=== PATIENT | female | born 1970 | race Native Hawaiian/Other Pacific Islander ===

== ENCOUNTER 2020-08-08 06:12 | Day surgery (SDC) | payer OTHER ==
--- NOTE | 2020-08-07 21:00 | History and Physical Report ---
History of Present Illness Date of examination: 08/06/20 Chief complaint: Vulvar pain, Bump History of present illness: Pt is a 49 year old female presents for surgical management of left vulvar mass. An attempt was made at in office biopsy, but in the interest of patient safety, the decision was made to perform the procedure in the operating room given her history of anticoagulation with warfarin 5 mg daily for atrial fibrillation and Acuña prosthetic valve replacement mitral stenosis. Past History Past Medical History: arrhythmia (atrial fibrillation ), other (Acuña prostethic mitral valve ) Past Surgical History: section, other (cardiac surgery ) [employer] History: herpes Family/Genetic History: diabetes, cancer Social history: no significant social history, - Obstetrical History : 2 Para: 2 Hx # Term Pregnancies: 2 Number of Pregnancies: 0 Spontaneous Abortions: 0 Induced : 0 Number of Living Children: 2 Medications and Allergies Allergies Allergy/AdvReac Type Severity Reaction Status Date / Time No Known Allergies Allergy Unverified 08/06/20 14:43 Active Meds: Active Medications Acetaminophen (Acetaminophen 500 Mg Tab) 1,000 mg PO PREOP RACHEL Stop: 08/08/20 21:00 Lactated Ringer's (Lactated Ringers) 1,000 mls @ 100 mls/hr IV DIRECT RACHEL Stop: 08/08/20 23:59 Midazolam HCl (Midazolam 2 Mg/2 Ml Inj) 2 mg IV PREOP NR Stop: 08/08/20 21:00 Review of Systems All systems: negative - Physical Exam Breasts: Positive: deferred Abdomen: Positive: soft Genitourinary (Female): Positive: other (left vulvar mass 3-4 cm, fluctuant; tender) Results All other labs normal. Assessment and Plan A: Left vulvar mass Acuña Prosthetic Valve secondary to Mitral Stenosis Atrial Fibrillation Anticoagulation with Warfarin 5 mg, held for three days preoperative per Cardiology recommendations P: Draw CBC, Type and Screen, Coags Proceed with exam under anesthesia, excision of left vluvar mass and other indicated procedures
[~2020-08-08 06:12] MED LIST: ACETAMINOPHEN 500 MG TAB PO SCH; LACTATED RINGERS 1,000 ML IV SCH; MIDAZOLAM 2 MG/2 ML INJ IV NR; ceFAZolin/Water 2 GM/20 ML 2 GM/20 ML SYRINGE IV NR
[2020-08-08] MEDS ORDERED: fentaNYL 100 MCG/2 ML INJ ONE (07:08)
[2020-08-08] MEDS ORDERED: LIDOCAINE MPF (2%) 20 MG/1 ML VIAL 5 ML ONE (07:08)
[2020-08-08] MEDS ORDERED: dexAMETHasone 20 MG/5 ML VIAL ONE (07:08)
[2020-08-08] MEDS ORDERED: ONDANSETRON 4 MG/2 ML INJ ONE (07:08)
[2020-08-08] MEDS ORDERED: propofoL 200 MG/20 ML VIAL IV ONE (07:09)
--- NOTE | 2020-08-08 07:32 | Anesthesia Day of Surgery ---
Anesthesia Day of Surgery - Day of Surgery Patient Examined: Yes Patient H&P Reviewed: Yes Patient is NPO: Yes
--- NOTE | 2020-08-08 07:32 | Anesthesia Consultation ---
Anesthesia Consult and Med Hx Date of service: 08/08/20 - Airway Anesthetic Teeth Evaluation: Good ROM Head & Neck: Adequate Mental/Hyoid Distance: Adequate Mallampati Class: Class III Intubation Access Assessment: Possibly Difficult - Pulmonary Exam CTA: Yes - Cardiac Exam Cardiac Exam: RRR - Pre-Operative Health Status ASA Pre-Surgery Classification: ASA3 Proposed Anesthetic Plan: General - Pulmonary Hx Smoking: No Hx Respiratory Symptoms: No - Cardiovascular System Hx Hypertension: No Hx Heart Attack/AMI: No Hx Percutaneous Transluminal Coronary Angioplasty (PTCA): No Hx Cardia Arrhythmia: Yes (hx a-fib; off coumadin x3 days per cardiology recs) Hx Pacemaker: No Hx Internal Defibrillator: No Hx Valvular Heart Disease: Yes (hx MS s/p MV replacement 2.5yrs ago) - Central Nervous System CVA: No - Endocrine Hx Renal Disease: No Hx Liver Disease: No Hx Insulin Dependent Diabetes: No Hx Non-Insulin Dependent Diabetes: No Hx Thyroid Disease: No - Other Systems Hx Obesity: No - Additional Comments Anesthesia Medical History Comments: No hx anesthetic complications.
[2020-08-08 07:37] LABS: Hematocrit 41.3 % (30.3-42.9); Hemoglobin 13.9 gm/dl (10.1-14.3); Mean Corpuscular HGB Conc 34 % (30-34); Mean Corpuscular Volume 90 fl (79-97); Platelet Count 223 K/mm3 (140-440); Red Blood Count 4.59 M/mm3 (3.65-5.03); Red Cell Distribution Width 13.8 % (13.2-15.2)
[2020-08-08] MEDS ORDERED: ROCURONIUM 50 MG/5 ML INJ IV ONE ×2 (07:43→07:44)
[2020-08-08 07:48] LABS: INR 1.3 (0.87-1.13)
[2020-08-08 07:49] LABS: Partial Thromboplastin Time 30.3 Sec. (24.2-36.6)
[2020-08-08] MEDS ORDERED: HYDROmorphone 1 MG/1 ML INJ IV PRN (08:00)
[2020-08-08] MEDS ORDERED: ONDANSETRON 4 MG/2 ML INJ IV PRN (08:00)
[2020-08-08] MEDS ORDERED: HYDROmorphone 1 MG/1 ML INJ ONE (08:11)
[2020-08-08] MEDS ORDERED: LIDOCAINE 2%/EPINEPHRINE 1:100,000 VIAL (20 ML) INFILTRATI ONE (08:12)
[2020-08-08] MEDS ORDERED: LIDOCAINE 1.5% /EPINEPHRINE 1:200,000 AMP (5 ML) INFILTRATI ONE ×2 (08:12→08:24)
[2020-08-08] MEDS ORDERED: LIDOCAINE 0.5%/EPINEPHRINE 1:200,000 VIAL (50 ML) MDV INFILTRATI ONE (08:30)
--- NOTE | 2020-08-08 08:45 | Operative Report ---
Operative Report Operative Report: Date of Procedure: August 08, 2020 Preoperative Diagnosis: Left Vulvar Mass, Vulvar Pain Postoperative Diagnosis: Same Procedure: Exam under anesthesia, Incision, Irrigation and Biopsy of Left Vulvar Mass Surgeon: Michelle Quiñonez MD Rip/Mould Operator: Milvia Duenas MD Anesthesia: GETA Findings: 1) One centimeter area of yellow tissue surrounded by erythema and 3-4 cm depth of indurated tissue in the left labum majorum EBL: 25 mL Urine output: 75 mL, clear prior to the procedure Drains: None Specimen: Biopsy of yellow tissue at center of left vulvar mass to pathology Disposition: Stable to PACU Indication for Procedure: Pt is a 49 year old female presents for surgical management of left vulvar mass. An attempt was made at in office biopsy, but in the interest of patient safety, the decision was made to perform the procedure in the operating room given her history of anticoagulation with warfarin 5 mg daily for atrial fibrillation and Acuña prosthetic valve replacement mitral stenosis. Operation in Detail: After the risks, benefits, alternatives and complications of the procedures were explained to the patient, she gave informed consent for the procedure. She was taken to the operating room with her IV noted to be running well and placed in the dorsal supine position. SCDs were noted to be in place and functioning. General endotracheal anesthesia was induced without difficulty. She was then placed in the dorsal lithotomy position and prepped and draped in a sterile fashion. A time out was performed. A rubber catheter was used to drain the bladder of clear urine. At this time, a yellow area 1-2 cm in width was noted in the left labum majorum at the 4 o'clock position. The area was infiltrated with 1% lidocaine with epinephrine to aid in hemostasis. A portion of the yellow tissue was excised and sent to pathology for analysis. Then a deeper incision was made in the tissue with findings of only indurated tissue and no egress of fluid or pus. The remaining cavity was irrigated with normal saline, then cauterized to obtain hemostasis. The cavity was then packed with iodoform gauze. The gauze was held in place with a loose figure of eight of 3-0 silk suture. At this time, hemostasis was noted and the procedure was ended. The patient was placed into the dorsal supine position and extubated without difficulty. She was taken to the PACU in stable condition. She will receive a 14 day course of oral antibiotics postoperatively.
--- NOTE | 2020-08-08 08:49 | Short Stay Summary ---
Short Stay Documentation Date of service: 08/08/20 - History H&P: dictated Social history: no significant social history, - Allergies and Medications Current Medications: Allergies No Known Allergies Allergy (Unverified 08/06/20 14:43) Home Medications Medication Instructions Recorded Confirmed Last Taken Type Warfarin 2.5 mg PO DAILY 08/08/20 08/08/20 08/05/20 20:00 History Active Medications Acetaminophen (Acetaminophen 500 Mg Tab) 1,000 mg PO PREOP RACHEL Stop: 08/08/20 21:00 Hydromorphone HCl (Hydromorphone 1 Mg/1 Ml Inj) 0.5 mg IV Q10MIN PRN PRN Reason: Pain , Severe (7-10) Stop: 08/08/20 17:00 Lactated Ringer's (Lactated Ringers) 1,000 mls @ 100 mls/hr IV DIRECT RACHEL Stop: 08/08/20 23:59 Last Admin: 08/08/20 07:25 Dose: 100 mls/hr Documented by: Cefazolin Sodium (Ancef/Sterile Water 2 Gm/20 Ml) 2 gm in 20 mls @ 80 mls/hr IV PREOP NR; Protocol Stop: 08/08/20 23:01 Midazolam HCl (Midazolam 2 Mg/2 Ml Inj) 2 mg IV PREOP NR Stop: 08/08/20 21:00 Last Admin: 08/08/20 07:35 Dose: 2 mg Documented by: Ondansetron HCl (Ondansetron 4 Mg/2 Ml Inj) 4 mg IV ONCE PRN PRN Reason: Nausea And Vomiting Stop: 08/08/20 17:00 - Physical exam Breasts: deferred - Brief post op/procedure progress note Date of procedure: 08/08/20 Pre-op diagnosis: L vulvar mass Post-op diagnosis: same Procedure: Exam under anesthesia Incision, Irrigation and Biopsy of Left Vulvar Mass Anesthesia: GETA Findings: 1 cm area on left labum majorum of yellow indurated tissue with surrounding erythema that is biopsied, 3-4 cm depth of indurated tissue; no egress of fluid or pus Surgeon: JON QUIÑONEZ Estimated blood loss: minimal (25 mL) Pathology: list Specimen disposition: to lab Condition: stable - Hospital course Hospital course: Pt was admitted for exam under anesthesia, incision, irrigation and biopsy of left vulvar mass which she tolerated well. She was observed in the PACU until she met discharge criteria. She will follow up in the office on Wednesday August 12, [address] Quiñonez. - Disposition Condition at discharge: Stable Disposition: [id number] TO HOME OR SELFCARE - Discharge Diagnoses (1) Mass of vulva Status: Acute (2) Atrial fibrillation Status: Acute Qualifiers: Atrial fibrillation type: unspecified Qualified Code(s): I48.91 - Unspecified atrial fibrillation Short Stay Discharge Plan Activity: other (Nothing in vagina, no tub baths for 4 weeks or as specified by your doctor ) Weight Bearing Status: Full Weight Bearing Diet: regular Wound: open to air, keep clean and dry Follow up with: PRIMARY CAREMD [Primary Care Provider] - 7 Days JON QUIÑONEZ MD [Staff Physician] - 08/12/20 (Please call to schedule your postop appt ) Prescriptions: oxyCODONE /ACETAMINOPHEN [Percocet 5/325] 1 tab PO Q6HR PRN #30 tablet PRN Reason: Pain
--- NOTE | 2020-08-08 09:54 | Post Anesthesia Evaluation ---
- Post Anesthesia Evaluation Patient Participated: Yes Airway Patent: Yes Stable Respiratory Function: Yes Nausea/Vomiting: No Temp > 96.8F: Yes Pain Manageable: Yes Adequeate Hydration: Yes Anesthesia Complications: No
[2020-08-08 10:31] VITALS: BP 119/81
== END 2020-08-08 10:20 | disposition home or self-care (01) ==
LOC: OR 06:12
PROVIDERS: ATTEND Obstetrics & Gynecology
DX: N90.89 Other specified noninflammatory disorders of vulva and perineum (principal); I48.91 Unspecified atrial fibrillation; I42.9 Cardiomyopathy, unspecified; Z79.899 Other long term (current) drug therapy; Z95.2 Presence of prosthetic heart valve; Z98.890 Other specified postprocedural states; Z86.2 Personal history of diseases of the blood and blood-forming organs and certain disorders involving the immune mechanism
CPT/HCPCS: 11422; 36415; 85027; 85610; 85730; 86850; 86900; 86901; 88305; 88312; 88341; 88342; J0690; J1100; J1170; J2250; J2405; J2704; J3010; J7120